=== PATIENT | male | born 1935 | race Caucasian/White ===

== ENCOUNTER 2019-01-14 04:52 | Emergency (ER) | payer MEDICARE, OTHER ==
[~2019-01-14] VITALS: Ht 182.9 cm; Wt 76.7 kg
[~2019-01-14 04:52] MED LIST: ACYC200 PO; ACYC5TO15G TOP; ASPI325B PO; ATEN25 PO; BRIM.15SO OD; CHOL10002 PO; CITRACEL; CODASP30 PO; CRUTCH USE; DIAZ5 PO; DORZOPSO OD; DOXA4 PO; ENTERIC ASPIRIN; FINA5 PO; FISH1000 PO; HYDACE5 PO; HYDCHL25 PO; LATA.005SO BOTHEYES; MULVITA PO; NAPR250 PO; NAPR500 PO; OMEP20ER PO; OMEP40CA12 PO; OXYACE5T PO; SILD25T PO; SIMV10 PO; SIMV20 PO; SPIR25 PO; TAMS.4ER PO; TRAV.004OP OD; VARDENAFIL; VITAMIN D PO; [UNRECOGNIZED DRUG - OTHER]; citracel; valium
== END 2019-01-14 05:41 | disposition home or self-care (01) ==
LOC: ER 04:52
DX: K52.9 Noninfective gastroenteritis and colitis, unspecified (principal); Z79.899 Other long term (current) drug therapy; Z79.82 Long term (current) use of aspirin
CPT/HCPCS: 99283

== ENCOUNTER 2019-03-11 13:10 | Emergency (ER) | payer MEDICARE, OTHER ==
[~2019-03-11] VITALS: Ht 180.3 cm; Wt 83.0 kg
== END 2019-03-11 15:43 | disposition left against medical advice (07) ==
LOC: ER 13:10
DX: M25.551 Pain in right hip (principal); M79.10 Myalgia, unspecified site; Z53.21 Procedure and treatment not carried out due to patient leaving prior to being seen by health care provider
CPT/HCPCS: 73502; 99283-25

== ENCOUNTER 2019-03-19 12:12 | Emergency (ER) | payer MEDICARE, OTHER ==
[~2019-03-19] VITALS: Ht 182.9 cm; Wt 83.9 kg
[2019-03-19 13:36] LABS: BASOPHILS ABSOLUTE AUTO 0.03 K/mm3 (0.00-0.23); BASOPHILS PERCENT AUTO 0 % (0-2); EOSINOPHILS ABSOLUTE AUTO 0.09 K/mm3 (0.00-0.68); EOSINOPHILS PERCENT AUTO 1 % (0-6); Hematocrit 28.6 % (37.0-53.0); Hemoglobin 9.5 g/dL (13.5-17.5); IMMATURE GRAN ABSOLUTE AUTO 0.07 K/mm3 (0.00-0.10); IMMATURE GRAN PERCENT AUTO 1 % (0-1); LYMPHOCYTES PERCENT AUTO 9 % (21-46); MONOCYTES ABSOLUTE AUTO 0.64 K/mm3 (0.16-1.47); MONOCYTES PERCENT AUTO 6 % (4-13); Mean Corpuscular HGB 32.5 pg (26.0-34.0); Mean Corpuscular HGB Conc 33.2 g/dL (31.5-36.5); Mean Corpuscular Volume 98 fL (80-100); Mean Platelet Volume 11.5 fL (9.1-12.4); NEUTROPHILS ABSOLUTE AUTO 8.39 K/mm3 (1.96-9.15); NEUTROPHILS PERCENT AUTO 83 % (41-73); Platelet Count 209 K/mm3 (150-400); RDW Coefficient Variation 14.3 % (11.7-14.2); RDW Standard Deviation 49.6 fL (35.1-46.3); Red Blood Cell Count 2.92 M/mm3 (4.30-5.90); White Blood Cell Count 10.12 K/mm3 (4.00-11.30)
[2019-03-19 13:58] LABS: Albumin, Blood 3.3 g/dL (3.4-5.0); Anion Gap 6 mmol/L (6-16); Blood Urea Nitrogen 19 mg/dL (8-24); CO2, Blood 27 mmol/L (21-32); Calcium, Blood 8.4 mg/dL (8.5-10.1); Chloride, Blood 107 mmol/L (98-108); Glucose, Blood 117 mg/dL (70-99); Potassium, Blood 3.8 mmol/L (3.5-5.5); Sodium, Blood 140 mmol/L (136-145)
[2019-03-19 14:05] LABS: Alanine Aminotransfer (ALT/SGP 17 U/L (12-78); Albumin/Globulin Ratio 1.3 (0.8-1.8); Alk Phos 35 U/L (50-136); Aspartate Aminotrans (AST/SGOT 12 U/L (12-37); Bilirubin, Total 1.8 mg/dL (0.1-1.0); Bun/Creatinine Ratio 19.9 (12.0-20.0); CPK Creatine Kinase 58 U/L (39-308); Creatine Kinase MB 1.5 ng/mL (0.0-3.6); Creatine Kinase MB Index 2.6 (0.0-4.0); Creatinine, Blood 0.96 mg/dL (0.60-1.20); Globulin, Blood 2.6 g/dL (2.2-4.0); Glomerular Filtration Rate >60 (60-); Total Protein, Blood 5.9 g/dL (6.4-8.2)
[2019-03-19] MEDS ORDERED: Percocet 5-3251 EACH PO (15:04)
[2019-03-19] MEDS ORDERED: Miralax17 GM PO (15:05)
== END 2019-03-19 15:33 | disposition home or self-care (01) ==
LOC: ER 12:12
PROVIDERS: Emergency Medicine
DX: S70.01XA Contusion of right hip, initial encounter (principal); D64.9 Anemia, unspecified; I10 Essential (primary) hypertension; Z87.891 Personal history of nicotine dependence; Z88.0 Allergy status to penicillin; Z88.8 Allergy status to other drugs, medicaments and biological substances; W19.XXXA Unspecified fall, initial encounter
CPT/HCPCS: 73502; 80053; 82550; 82553; 85025; 96374; 96375; 96376; 99284-25; J1170; J2405

== ENCOUNTER 2020-10-19 19:55 | Emergency (ER) | payer MEDICARE, OTHER ==
[~2020-10-19] VITALS: Ht 182.9 cm; Wt 81.7 kg
[~2020-10-19 19:55] MED LIST changes: +Miralax17 GM PO; +Percocet 5-3251 EACH PO
[2020-10-19] MEDS ORDERED: XARELTO20 MG PO (20:12)
[2020-10-19 20:34] LABS: BASOPHILS ABSOLUTE AUTO 0.05 K/mm3 (0.00-0.23); BASOPHILS PERCENT AUTO 0 % (0-2); EOSINOPHILS ABSOLUTE AUTO 0.21 K/mm3 (0.00-0.68); EOSINOPHILS PERCENT AUTO 2 % (0-6); Hematocrit 45.4 % (37.0-53.0); Hemoglobin 15.3 g/dL (13.5-17.5); IMMATURE GRAN ABSOLUTE AUTO 0.06 K/mm3 (0.00-0.10); IMMATURE GRAN PERCENT AUTO 1 % (0-1); LYMPHOCYTES ABSOLUTE AUTO 1.24 K/mm3 (0.84-5.20); LYMPHOCYTES PERCENT AUTO 10 % (21-46); MONOCYTES ABSOLUTE AUTO 0.89 K/mm3 (0.16-1.47); MONOCYTES PERCENT AUTO 7 % (4-13); Mean Corpuscular HGB 32.6 pg (26.0-34.0); Mean Corpuscular HGB Conc 33.7 g/dL (31.5-36.5); Mean Corpuscular Volume 97 fL (80-100); Mean Platelet Volume 10.9 fL (9.1-12.4); NEUTROPHILS ABSOLUTE AUTO 10.03 K/mm3 (1.96-9.15); NEUTROPHILS PERCENT AUTO 80 % (41-73); Platelet Count 172 K/mm3 (150-400); RDW Standard Deviation 46.1 fL (35.1-46.3); Red Blood Cell Count 4.69 M/mm3 (4.30-5.90); White Blood Cell Count 12.48 K/mm3 (4.00-11.30)
[2020-10-19 20:53] LABS: Albumin, Blood 4.1 g/dL (3.4-5.0); Albumin/Globulin Ratio 1.3 (0.8-1.8); Bilirubin, Total 0.9 mg/dL (0.1-1.0); Bun/Creatinine Ratio 16.4 (12.0-20.0); Calcium, Blood 8.9 mg/dL (8.5-10.1); Creatinine, Blood 1.16 mg/dL (0.60-1.20); Globulin, Blood 3.1 g/dL (2.2-4.0); Potassium, Blood 3.7 mmol/L (3.5-5.5); Total Protein, Blood 7.2 g/dL (6.4-8.2)
== END 2020-10-19 21:31 | disposition left against medical advice (07) ==
LOC: ER 19:55
PROVIDERS: Physician Assistant
DX: R00.1 Bradycardia, unspecified (principal); Z53.21 Procedure and treatment not carried out due to patient leaving prior to being seen by health care provider
CPT/HCPCS: 36415; 80053; 85025; 93005; 93010; 99284-25

== ENCOUNTER 2020-11-03 11:48 | Day surgery (SDC) | payer MEDICARE, OTHER ==
[~2020-11-03] VITALS: Ht 182.9 cm; Wt 57.0 kg
[~2020-11-03 11:48] MED LIST changes: +XARELTO20 MG PO
[2020-11-03] MEDS ORDERED: LOTENSIN HCT 11 EAC1 PO (12:34)
[2020-11-03] MEDS ORDERED: LATA.005SO BOTHEYES (12:36)
[2020-11-03] MEDS ORDERED: METO25ER PO (12:37)
[2020-11-03] MEDS ORDERED: NITR.4SL SL (12:38)
[2020-11-03] MEDS ORDERED: XARELTO10 M1 PO (12:39)
[2020-11-03] MEDS ORDERED: ZOCOR20 MG PO (12:39)
[2020-11-03] MEDS ORDERED: ALDACTONE100 M1 PO (12:40)
[2020-11-03] MEDS ORDERED: TAMS.4ER PO (12:40)
== END 2020-11-03 23:22 | disposition home or self-care (01) ==
LOC: MHTC 11:48
DX: R55 Syncope and collapse (principal)
CPT/HCPCS: 33285; C1764

== ENCOUNTER 2021-01-12 06:19 | Day surgery (SDC) | payer MEDICARE, OTHER ==
[~2021-01-12] VITALS: Ht 182.9 cm; Wt 91.0 kg
[~2021-01-12 06:19] MED LIST changes: +ALDACTONE100 M1 PO; +CARBLEV250 SL; +KETO.5OPSO; +LOTENSIN HCT 11 EAC1 PO; +METO25ER PO; +NITR.4SL SL; +SILD25T; +TIMDOROPSO BOTHEYES; +XARELTO10 M1 PO; +ZOCOR20 MG PO
--- NOTE | 2021-01-12 09:34 | NUR ---
TO RECOVERY ROOM VIA BED.
--- NOTE | 2021-01-12 10:30 | NUR ---
RETURNED FROM XRAY. ASSUMED CARE OF PATIENT. LEFT UPPER CHEST DRESSING DRY AND INTACT. ICE AND 2# WEIGHT APPLIED. DENIES PAIN.
--- NOTE | 2021-01-12 13:55 | NUR ---
PT AND FAMILY VERBALIZES UDNERSTANDING WRITTEN AND VERBAL INSTRUCTIONS. DENIES QUESTIONS OR CONCERNS. PT L SIDE CHEST WALL SITE REMAINS CLEAR. VSS. NADN. PT DRESSES SELF WITH MINIMAL ASSISTANCE. PT IV DC'D. CATH INTACT. PRESSURE DSG APPLIED. PT DC'D TO HOME VIA WC BY FAMILY.
== END 2021-01-12 14:00 | disposition home or self-care (01) ==
LOC: MHTC 06:19
DX: I49.5 Sick sinus syndrome (principal); I48.91 Unspecified atrial fibrillation; K21.9 Gastro-esophageal reflux disease without esophagitis; I10 Essential (primary) hypertension; E78.5 Hyperlipidemia, unspecified; G20 Parkinson's disease; Z88.0 Allergy status to penicillin; Z88.1 Allergy status to other antibiotic agents; Z88.8 Allergy status to other drugs, medicaments and biological substances; Z79.899 Other long term (current) drug therapy
CPT/HCPCS: 33207; 33286; 71046; 99152; 99153; C1786; C1898; J1644; J2250; J2310; J3010; J3370; J7030; J7040

== ENCOUNTER 2022-02-20 22:29 | Emergency (ER) | payer MEDICARE, OTHER ==
[~2022-02-20] VITALS: Ht 170.2 cm; Wt 90.7 kg
[2022-02-20 22:52] LABS: BASOPHILS ABSOLUTE AUTO 0.04 K/mm3 (0.00-0.23); BASOPHILS PERCENT AUTO 1 % (0-2); EOSINOPHILS ABSOLUTE AUTO 0.14 K/mm3 (0.00-0.68); EOSINOPHILS PERCENT AUTO 2 % (0-6); Hemoglobin 13.7 g/dL (13.5-17.5); IMMATURE GRAN ABSOLUTE AUTO 0.04 K/mm3 (0.00-0.10); IMMATURE GRAN PERCENT AUTO 1 % (0-1); LYMPHOCYTES ABSOLUTE AUTO 1.07 K/mm3 (0.84-5.20); LYMPHOCYTES PERCENT AUTO 12 % (21-46); MONOCYTES ABSOLUTE AUTO 0.66 K/mm3 (0.16-1.47); MONOCYTES PERCENT AUTO 8 % (4-13); Mean Corpuscular HGB 32.5 pg (26.0-34.0); Mean Corpuscular HGB Conc 34.3 g/dL (31.5-36.5); Mean Corpuscular Volume 95 fL (80-100); Mean Platelet Volume 11.2 fL (9.1-12.4); NEUTROPHILS ABSOLUTE AUTO 6.79 K/mm3 (1.96-9.15); NEUTROPHILS PERCENT AUTO 78 % (41-73); Platelet Count 160 K/mm3 (150-400); RDW Standard Deviation 45.4 fL (35.1-46.3); Red Blood Cell Count 4.22 M/mm3 (4.30-5.90); White Blood Cell Count 8.74 K/mm3 (4.00-11.30)
[2022-02-20 23:14] LABS: Albumin, Blood 3.6 g/dL (3.4-5.0); Albumin/Globulin Ratio 1.2 (0.8-1.8); Bilirubin, Total 1.2 mg/dL (0.1-1.0); Bun/Creatinine Ratio 17.5 (12.0-20.0); Calcium, Blood 8.9 mg/dL (8.5-10.1); Creatinine, Blood 1.03 mg/dL (0.60-1.20); Potassium, Blood 3.9 mmol/L (3.5-5.5); Total Protein, Blood 6.6 g/dL (6.4-8.2)
== END 2022-02-21 01:50 | disposition home or self-care (01) ==
LOC: ER 22:29
PROVIDERS: Emergency Medicine
DX: R07.9 Chest pain, unspecified (principal); Z87.891 Personal history of nicotine dependence
CPT/HCPCS: 71046; 80053; 83690; 84484; 85025; 93005; 93010

== ENCOUNTER 2022-11-14 03:05 | Inpatient (IN) | payer MEDICARE, OTHER ==
[~2022-11-14] VITALS: Ht 182.9 cm; Wt 81.5 kg
[2022-11-14 03:44] LABS: BASOPHILS ABSOLUTE AUTO 0.03 K/mm3 (0.00-0.23); BASOPHILS PERCENT AUTO 0 % (0-2); EOSINOPHILS ABSOLUTE AUTO 0.08 K/mm3 (0.00-0.68); EOSINOPHILS PERCENT AUTO 1 % (0-6); Hemoglobin 14.9 g/dL (13.5-17.5); IMMATURE GRAN ABSOLUTE AUTO 0.07 K/mm3 (0.00-0.10); IMMATURE GRAN PERCENT AUTO 1 % (0-1); LYMPHOCYTES ABSOLUTE AUTO 1.07 K/mm3 (0.84-5.20); LYMPHOCYTES PERCENT AUTO 8 % (21-46); MONOCYTES ABSOLUTE AUTO 0.81 K/mm3 (0.16-1.47); MONOCYTES PERCENT AUTO 6 % (4-13); Mean Corpuscular HGB 30.8 pg (26.0-34.0); Mean Corpuscular HGB Conc 32.4 g/dL (31.5-36.5); Mean Corpuscular Volume 95 fL (80-100); Mean Platelet Volume 11.4 fL (9.1-12.4); NEUTROPHILS ABSOLUTE AUTO 11.25 K/mm3 (1.96-9.15); NEUTROPHILS PERCENT AUTO 85 % (41-73); Platelet Count 193 K/mm3 (150-400); RDW Coefficient Variation 13.1 % (11.7-14.2); RDW Standard Deviation 46.1 fL (35.1-46.3); Red Blood Cell Count 4.83 M/mm3 (4.30-5.90); White Blood Cell Count 13.31 K/mm3 (4.00-11.30)
[2022-11-14 04:06] LABS: Albumin, Blood 3.8 g/dL (3.4-5.0); Albumin/Globulin Ratio 1.2 (0.8-1.8); Bilirubin, Total 1.5 mg/dL (0.1-1.0); Bun/Creatinine Ratio 18.9 (12.0-20.0); Calcium, Blood 9.3 mg/dL (8.5-10.1); Creatinine, Blood 1.22 mg/dL (0.60-1.20); Globulin, Blood 3.1 g/dL (2.2-4.0); Potassium, Blood 4.2 mmol/L (3.5-5.5); Total Protein, Blood 6.9 g/dL (6.4-8.2)
[2022-11-14 04:21] LABS: Magnesium, Blood 1.8 mg/dL (1.6-2.4); Phosphorus, Blood 3.1 mg/dL (2.5-4.9)
[2022-11-14 13:44] VITALS: BP 143/52
[2022-11-14] MEDS ORDERED: B-121000 MC3 PO (13:50)
--- NOTE | 2022-11-14 16:55 | NUR ---
TRANSFER NOTE: PT WAS TRANSFERED TO ROOM 351 AND SECOND NURSE CLYDE DID SKIN CHECK WITH THIS NURSE. NO SKIN ISSUES FOUND.
[2022-11-14 20:48] VITALS: BP 111/92
[2022-11-15 05:21] LABS: Hematocrit 38.7 % (37.0-53.0); Hemoglobin 12.8 g/dL (13.5-17.5); Mean Corpuscular HGB Conc 33.1 g/dL (31.5-36.5); Mean Corpuscular Volume 94 fL (80-100); Mean Platelet Volume 12.2 fL (9.1-12.4); Platelet Count 132 K/mm3 (150-400); RDW Coefficient Variation 13.2 % (11.7-14.2); RDW Standard Deviation 45.4 fL (35.1-46.3); Red Blood Cell Count 4.13 M/mm3 (4.30-5.90); White Blood Cell Count 8.14 K/mm3 (4.00-11.30)
[2022-11-15 05:32] VITALS: BP 122/61
[2022-11-15 05:51] LABS: Albumin/Globulin Ratio 1.1 (0.8-1.8); Bun/Creatinine Ratio 20.8 (12.0-20.0); Calcium, Blood 8.7 mg/dL (8.5-10.1); Creatinine, Blood 0.96 mg/dL (0.60-1.20); Globulin, Blood 2.8 g/dL (2.2-4.0); Potassium, Blood 4.4 mmol/L (3.5-5.5); Total Protein, Blood 5.8 g/dL (6.4-8.2)
--- NOTE | 2022-11-15 06:12 | NUR ---
SHIFT SUMMARY PT ALERT AND ORIENTED TO SELF/ PT PULLED OFF HIS TELE MULTIPLE TIMES DURING BEGINNING OF SHIFT; REPLACED TELE, PUT PATIENT IN A PAPER SHIRT; PT HAS KEPT TELE ON T/O THE REMAINDER OF SHIFT. VIRTUAL LEVEL VIAL INSPECTOR AND TESTER IS ON AND RUNNING. IV PLACED IN RIGHT WRIST. PT SLEPT OFF AND FROM 0000 TO CURRENT. PT DENIES CHEST PAIN/PRESSURE/TIGHTNESS. PT PAIN ASSESSED-PT DENIES PAIN. PT HAS IV INFUSING. BED IS LOCKED IN THE LOWEST POSITION WITH CALL LIGHT IN REACH. NO S/S OF DISTRESS NOTED AT THIS TIME.
[2022-11-15 07:51] VITALS: BP 131/57
[2022-11-15 16:00] VITALS: BP 123/55
--- NOTE | 2022-11-15 19:11 | NUR ---
SHIFT SUMMARY: PT IS ADMITTED FOR CHEST PAIN. HE HAS BEEN ALERT TO SELF WITH SOME WORD SALAD TYPE EXPRESSIONS. TALKING WITH FAMILY THIS IS BASELINE. EXAMPLE FOR WORD SALAD FROM TODAY HE STATED TO THIS LN I NEED TO WALK THE DOG AFTER A COUPLE OF QUESTIONS HE NEED TO TRY AND WALK TO THE BATHROOM. CHANGE FROM FULL CODE TO DNR. START IMDUR, ASPIRIN AND LEVAQUIN. ON TELEY WITH A REPORT OF V-PACED AT 60.
[2022-11-15 19:53] VITALS: BP 132/59
[2022-11-16 02:34] VITALS: BP 148/68
--- NOTE | 2022-11-16 05:49 | NUR ---
SHIFT SUMMARY 86 YR M ADMITTED ON 11/15/22 FOR ANGINA. DNR. NO ACUTE CHANGES THIS SHIFT. PT IS VERY CONFUSED AND ONLY ORIENTED TO SELF. HE IS EASILY REDIRECTABLE AND IS VERY PLEASANT. NO C/O CHEST PAIN THIS SHIFT AND NO OBVIOUS EPISODES OF WORD SALAD. HOWEVER, HE SAYS RANDOM THINGS AND HE IS OBVIOUSLY CONFUSED ABOUT WHERE HE IS. HE HAD A COUPLE OF NAPS THIS SHIFT BUT FOR THE MOST PART HE WAS AWAKE ALL NIGHT.
[2022-11-16 07:20] VITALS: BP 146/59
[2022-11-16 08:53] LABS: Cholesterol 156 mg/dL (50-200); HDL Cholesterol 39 mg/dL (>39); LDL/HDL RATIO 2.4; Low Density Lipoprotein Chol 93 mg/dL (0-110); Triglycerides 119 mg/dL (30-160); Very Low Density Lipoprot Chol 23 mg/dL (6-32)
[2022-11-16 14:54] VITALS: BP 130/67
--- NOTE | 2022-11-16 18:53 | NUR ---
DAY SHIFT SUMMARY: ALERT. NOT ORIENTED. DISSOCIATED AND DISORGANIZED SPEECH; BELIEVES TO BE AT [facility] IN [place] BUT CAN COMMUNICATE THAT HE WANTS TO LEAVE. SPOKE WITH DAUGHTER, CHANO, WHO STATES KRISTA' HAS DEMENTIA WELL AND CANNOT CARE FOR KRISTA ON HER OWN. PER DR BECKFORD VIA PT, HE IS NOT APPRPRIATE FOR DC AT THIS TIME AND LIKELY WON'T BE UNTIL FRIDAY IN WHICH HE WILL LIKELY DC TO SNF. DECLINED NEED TO USE BATHROOM ALL DAY TODAY AND REMAINED CLEAN AND DRY. REMOVES TELE OCCASIONALLY; RUNNING 65, V-PACED c PVCs. NO C/O PAIN OR DISCOMFORT. WILL REPORT TO ONCOMING RN.
[2022-11-16 19:44] VITALS: BP 104/79
[2022-11-17 02:26] VITALS: BP 156/71
--- NOTE | 2022-11-17 04:38 | NUR ---
SHIFT SUMMARY 86 YR M ADMITTED ON 11/15/22 FOR CHEST APIN RULE OUT DC. DNR. NORMAN WAS A ROUGH SHIFT FOR PT. HE CONTINUOUSLY PULLED AT HIS TELE WIRES DESPITE REPEATEDLY BEING TOLD BY Pathagility TECH TO LEAVE THEM ALONE. HE BECAME CONVINCED HE WANTED TO LEAVE AND TRIED GETTING OUT OF BED ON HIS OWN MULTIPLE TIMES. HE BECAME AGGRESSIVE WITH STAFF AND THREATENED SEVERAL TIMES TO MAKE US IF WE DID NOT LEAVE HIM ALONE. HE STATED THAT HE NEEDED A SHARP OBJECT TO "TAKE CARE OF US" AND HE WAS KICKING, BITING, AND SLAPPING AT STAFF. HOSPITALIST WAS CONTACTED AND AN ORDER FOR 25 MG SEROQUEL AND 2 MG HALDOL IM WERE OBTAINED WELL AN ORDER FOR A REJI VEST. PT ALSO HAD A BM IN HIS BRIEF AND WAS REFUSING FOR STAFF TO CLEAN HIM UP. THESE MEDS DID NOT WORK RIGHT AWAY SO ANOTHER ORDER FOR 10 MG ZIPRASIDON IM WAS OBTAINED. HOWEVER, THIS MED WAS NOT GIVEN PT FINALLY CALMED DOWN AND FELL ASLEEP. AT THIS TIME THE REJI WAS UNTIED AND THE ORDER WAS DC'D. AN ORDER TO DC TELE WAS ALSO OBTAINED BECAUSE PT REFUSED TO LEAVE IT ON. PT HAS BEEN SLEEPING FOR A COUPLE OF HOURS NOW.
[2022-11-17 07:33] VITALS: BP 139/81
[2022-11-17 15:07] VITALS: BP 128/56
--- NOTE | 2022-11-17 18:33 | NUR ---
SUMMARY- PT A/O X1-2, RECOGNIZES THE FAMILY. PT REMAINED IN BED, DID NOT ATTEMPT TO GET OOB. PT WAS CALM AND DIRECTABLE TODAY. SLEPT FREQ T/O DAY. INCONT URINE FLOODED BED THIS AM AND HASN'T VOIDED ALL DAY SINCE. DENIES THE NEED TO VOID. PT NEEDS CUES AND ASSISTANCE TO EAT AND DRINK. EATING SMALL AMOUNTS OF EACH MEAL WITH SET UP AND ASSIST. AND CLOSE FRIENDS IN TO VISIT THE PATIENT, PT RECOGNIZED THEM. DID NOT NEED ANY PRN ANTIPSYCHOTICS TODAY. USING VIRTUAL HIGH LEAD YARDER, NO ATTEMPTS TO GET UP. WILL REOPRT TO DEHYDRATING PRESS OPERATOR
[2022-11-17 19:56] VITALS: BP 138/59
[2022-11-18 05:08] VITALS: BP 137/72
--- NOTE | 2022-11-18 06:40 | NUR ---
SHIFT SUMMARY PT LAYING IN BED WITH EYES CLOSED DURING BEDSIDE REPORT, NO S/S DISTRESS/PAIN- PHONE CALL FROM DAUGHTER CHANO - PT REQUESTED THAT I TALK TO [place], PT INCONTINENT OF URINE T/O NIGHT- NO BEHAVIOR ISSUES PT SLEPT T/O NIGHT- BED LOW POSITION, CALL LIGHT WITHIN REACH
--- NOTE | 2022-11-18 06:45 | NUR ---
PT MONITORED BY VIRTUAL CAMERA, PT SET OFF ALARM A COUPLE TIMES IN THE NIGHT FOR ATTEMPTING TO GET TO SIDE OF BED-
[2022-11-18 07:26] VITALS: BP 149/94
--- NOTE | 2022-11-18 15:09 | NUR ---
keven Rahman ALARMED. fOUND PT WITH LEGS OOB. hE WAS TALKING ABOUT [facility] TAKING HIS . [facility]. VERY CONVOLUTED CONVERSATION. THE ONLY THREAD WAS HE WAS TALKING ABOUT [facility]. HE DID NOT REMEMBER HIS BEINGHERE AT LUNCH. MULTIPLE REDIRECTIONS AND HE WAS BECOMING MORE AGGITATED. MEDICATED WITH SEROQUEL 50MG X1. HE WAS AGREEABLE TO TAKE IT. SPENT TIME VISITING WITH HIM UNTIL HE CALMED. CONTINUE POC.
[2022-11-18 15:21] VITALS: BP 126/55
--- NOTE | 2022-11-18 16:56 | NUR ---
CLIMBING PT ON CAMERA. 4 ATTEMPTS TO CLIMB OOB TO LOOK FOR HIS LOST WATCH THAT HE TOOK OFF AT 130PM. UNABLE TO REDIRECT. BED ALARM ON. CONTINUE POC.
[2022-11-18 20:05] VITALS: BP 137/67
[2022-11-19 04:50] VITALS: BP 143/72
--- NOTE | 2022-11-19 06:31 | NUR ---
SHIFT SUMMARY BEDSIDE REPORT FROM PHILLIP RN, PT AWAKE LAYING IN BED- PT TOOK SCHEDULED MED AT HS- GAVE ADDITIONAL SEROQUEL FOR PT STARTING TO HAVE INCREASED AGITATION- PT ASKING STAFF EACH TIME IF WE KNOW WHERE HIS PEDRO IS- REORIENT PT TO PLACE AND SITUATION- PT ON VIRTUAL MONITORING AND USED MULTIPLE TIMES- BED LOW POSITION, CALL LIGHT WITHIN REACH, BED ALARM IN PLACE
[2022-11-19 07:41] VITALS: BP 150/71
[2022-11-19 15:37] VITALS: BP 141/64
--- NOTE | 2022-11-19 16:06 | NUR ---
note PT RESTING QUIETLY. HE AROUSES TO VOICE INTERACTS THEN GOES BACK TO SLEEP. CAME FOR A VISIT. SHE WOKE HIM IP. HE LOOKED AT HER AND ROLLED OVER AND WENT BACK TO SLEEP. FAMILY FRIEND RELATED THAT HE IS VERY RUDE TO HIS . HAS BEEN FOR YEARS. VSS. HE WILL WAKE UP ENOUGH TO EAT WITH ASSIST. HE WON'T FEED HIMSELF. INCONTINENT OF BLADDER. ATTENDS ON. H/L. RA. CONTINUE POC.
--- NOTE | 2022-11-19 18:27 | NUR ---
NOTE PT AWAKE, EATING DINNER. PLEASANT. HE REMEMBERS HIS VISITING. VSS. TOOK HIS MEDICATIONS WITH DINNER. ATTENDS CHANGED. BED LOW AND LOCKED WITH BED ALARM ON. SOCKS ON. CALL LIGHT WITH IN REACH. CONTINUE POC.
[2022-11-19 19:25] VITALS: BP 147/70
[2022-11-20 02:48] VITALS: BP 141/70
--- NOTE | 2022-11-20 05:55 | NUR ---
SHIFT SUMMARY BEDSIDE REPORT FROM PHILLIP RN- PT LAYING IN BED LOOKING THROUGH MAGAZINES- PT DENIES PAIN AND APPEARS TO BE COMFORTABLE, PT TURNED Q2H - BRIEF CHANGED, PT REQUSTED URNIAL - BRIEF WET - PT MONITORED BY VIRTUAL MONITOR- PT IV INFILTRATED WHEN FLUSHING WITH NS - WILL LEAVE OUT AND LEAVE MESSAGE WITH DAY SHIFT RN TO ASK FOR IV TO BE LEFT OUT- PT TAKING ORAL MEDS WITHOUT PROBLEMS
[2022-11-20 07:29] VITALS: BP 158/67
--- NOTE | 2022-11-20 08:11 | NUR ---
ASSUMED CARE OF PT. CALLED DR TO DISCUSS PT'S IV ACCESS, OBTAINED A TELEPHONE ORDER FOR NO IV ACCESS.
[2022-11-20 15:50] VITALS: BP 136/63
--- NOTE | 2022-11-20 17:19 | NUR ---
SHIFT SUMMARY PT A&O TO SELF, FAMILY, AND PLACE. PT AWAITING PLACEMENT. VSS. NO ACUTE EVENTS DURING MY SHIFT. PT PLEASANT AND COOPERATIVE WITH CARE. OBTAINED NO IV ACCESS ORDER FOR PT. PT LEFT IN A POSITION OF SAFETY WITH BED LOCKED AND IN LOWEST POSITION, BED ALARM ENABLED, ROOM CLEAR OF DEBRIS, BED RAILS UPX2, NONSKID SOCKS IN PLACE, AND CALL LIGHT WITHIN REACH.
[2022-11-20 19:21] VITALS: BP 142/62
[2022-11-21 04:25] VITALS: BP 153/79
--- NOTE | 2022-11-21 05:16 | NUR ---
END OF SHIFT SUMMARY PT CONFUSED AT BEGINNING OF SHIFT. PT CALLED OUT, WANTING STAFF TO CALL HIS TO GIVE HER AN UPDATE ON HIS CONDITION. THIS AUTHOR REASSURED PT THAT THINGS WERE GOING TO BE OKAY. PT REPOSITIONED THROUGHOUT THE SHIFT. PT INCONTINENT OF BOWEL AND BLADDER. TOTAL BED CHANGE, BRIEF WAS SATURATED IN URINE. PT CALM AND COOPERATIVE WITH CARE PROVIDED. PT DENIED CHEST PAIN/PRESSURE, NO SOB. PT TOOK MEDICATION WHOLE WITH WATER, NO ISSUES WITH SWALLOWING. PT A&O x1, ABLE TO STATE HIS NAME AND . CALL LIGHT WITHIN REACH, BED IN LOWEST POSITION. WCTM.
[2022-11-21 07:06] VITALS: BP 148/108
[2022-11-21 15:21] VITALS: BP 126/55
--- NOTE | 2022-11-21 17:26 | NUR ---
PT VSS. PT TAKEN OFF OF CAMERA MONITORING THIS AM. PT FAMILY AND VISITORS AT BEDSIDE THROUGHOUT DAY. NO ACUTE EVENTS AT THIS TIME. PT LEFT IN A POSITION OF SAFETY WITH BED/CHAIR ALARM ENABLED, NONSKID SOCKS IN PLACE, ROOM CLEAR OF DEBRIS, AND CALL LIGHT WITHIN REACH.
[2022-11-21 19:31] VITALS: BP 121/56
--- NOTE | 2022-11-22 05:51 | NUR ---
END OF SHIFT SUMMARY PT SLEPT WELL OVER NIGHT. UNEVENTFUL SHIFT. PT A&O x1-2, COMPLIANT WITH 2100 MEDICATION ADMINISTRATION. PT CALM AND COOPERATIVE WITH CARE PROVIDED. PT REQUIRES A LOT OF CUEING WITH TRANSFERS. PT UP OOB SITTING IN CHAIR NEXT TO BED AT THE CHANGE OF SHIFT. PT NO LONGER HAS TELESITTER/CAMERA MONITORING FOR SAFETY. PT SAFELY STAYED IN BED ALL NIGHT. NO HALLUCINATIONS OVERNIGHT. PRODUCTIVE COUGH PRESENT. RESP RATE EVEN AND UNLABORED. [facility] WORKING ON PLACEMENT. REFERRAL FOR SK[facility]ED REHAB WAS RESENT TO [facility] AND [facility] FOR REASSESSMENT. PT RESTING COMFORTABLY IN BED, CALL LIGHT WITHIN REACH, WCTM.
[2022-11-22 06:07] VITALS: BP 131/60
[2022-11-22 07:56] VITALS: BP 149/53
--- NOTE | 2022-11-22 14:00 | NUR ---
FRIEND AND CAME AND VISITED PATIENT, PALLIATIV CARE AND CHAPLIAN CONSULT ORDERED FOR PATIENTS COMMENTS OF WANTING IT ALL DONE AND LET HIM GO, DNR, POOR APPETITE, MEDICATED ITH TYLENOL FOR HEADACHE. CLL LIGHT WITH IN REACH, PATIENT BACK TO BED AFTER OOB IN CHAIR FOR LUNCH
--- NOTE | 2022-11-22 14:42 | NUR ---
Spiritual Care | Physician Referral Pt. i awake in bed when he welcomes my visit. Pt. is pleasant, but it curious about "who sent for me." With a calming and supportive presence I facilitated the Pt. sharing life story. Pt. displayed occassional inability to finish thoughts, and would apologize for it. The Pt. did verbalize that his spouse was not always the best at making health decisions and that is why Gaby is POA. Pt. verbalized that he would like to have more information regarding his treatment options, and that he still plans to live and enjoy life at home if possible. The Pt. did verbalize "I am a Unitarian and that won't change." I continued to listen with interest and empathy, and asked him if his religous belief came into conflict with his desire to continue treaatment. The Pts. response was not clear. The Pt. verbalized gratitude for the spiritual care visit, and welcomed the possiblity of my return.
[2022-11-22 16:58] VITALS: BP 125/66
--- NOTE | 2022-11-22 18:03 | NUR ---
NO ACUTE CHANGES, PATIENT EMOTIONAL STATE IMPROVED AT THE END OF SHIFT, AND FRIEND VISITED PATIENT, MAKES NEEDS KNOWN, RELUCTANT AT TIMES, ENCOURAGED TO PARTICIPATE IN CARE, BED ALARM ON, CALL LIGHT WITH IN REACH
[2022-11-22 19:21] VITALS: BP 115/53
--- NOTE | 2022-11-23 04:27 | NUR ---
SHIFT SUMMARY PT A&O X1-2. PT IS CONFUSED BUT EASILY REDIRECTABLE. OOB IN CHAIR FINISHING DINNER TRAY AT SHIFT REPORT. BACK TO BED WITH 1P ASSIST W/FFW AND GB. PT DENIES ANY CHEST PAIN OR PRESSURE AT THIS TIME. PT IS CONTINENT/INCONTINENT OF BOWEL/BLADDER AND SOMETIMES USES URINAL. ATTENDS IN PLACE. PT COMPLIANT WITH 2100 MEDS TAKEN WITH WATER. NO DIFFICULTIES WITH SWALLOWING. PT DENIES ANY PAIN OR DISCOMFORT. SLEEPING MUCH OF THE NIGHT WITHOUT ANY ACUTE EVENTS OVERNIGHT. BED KEPT IN THE LOWEST POSITION, CALL LIGHT WITHIN REACH, AND BED ALARM IN PLACE. WILL CONTINUE TO MONITOR UNTIL SHIFT END.
[2022-11-23 04:28] VITALS: BP 149/80
[2022-11-23 07:38] VITALS: BP 146/67
[2022-11-23 15:36] VITALS: BP 104/57
--- NOTE | 2022-11-23 19:16 | NUR ---
NO CHANGES, PATIENT VERY PLEASANT TODAY, POSITIVE ATTITUDE, VISITED TODAY, POSSIBLE PLACEMENT ON FRIDAY OR FRIDAY, MAKES NEEDS KNOWN, CALL LIGHT WITH IN REACH
[2022-11-23 19:43] VITALS: BP 124/60
--- NOTE | 2022-11-24 03:56 | NUR ---
SHIFT SUMMARY PT ALERT WITH SOME CONFUSOIN NOTICED. VERY PLEASANT AND COOPERATIVE WITH ALL CARE. PT DENIES AND CP OR PRESSURE AT THIS TIME AND HAS A PACER IN PLACE, NO TELE. PT 1P ASSIST WITH FFW & GB. PT UP IN CHAIR AT START OF SHIFT. USES CANE AT BASELINE. NO ACUTE EVENTS OVERNIGHT. BED KEPT IN LOWEST POSITION WITH BED ALARM SET AND CALL LIGHT WITHIN REACH. WILL CONTINUE TO MONITOR UNTIL SHIFT END.
[2022-11-24 04:07] VITALS: BP 147/65
[2022-11-24 07:27] VITALS: BP 154/68
[2022-11-24 15:00] VITALS: BP 116/57
--- NOTE | 2022-11-24 16:50 | NUR ---
NO ACUTE CHANGES, MENTATION SAME, ORIENTED TO SELF AND , NOT ORIENTED TO TIME DATE OR YEAR. PATIENT COMPLIANT TO ALL CARE, PLEASANT TO STAFF, USES CALL LIGHT, BED ALARM ON, POSSIBLE DISCAHRGE TO [place] ON FRIDAY OR FRIDAY, WILL RELAY TO PM RN
[2022-11-24 21:59] VITALS: BP 125/57
--- NOTE | 2022-11-25 04:45 | NUR ---
NO CHANGES OVERNIGHT. PATIENT IS PLEASANT AND COOPERATIVE WITH CARE, HE WAS TALKING JIBBERISH ABOUT WHICH PERSON IN THE ROOM WAS THE UP AND WHICH WAS THE DOWN. ONCE LAYING DOWN AND COMFORTABLE, ANA LUISA SLEPT ALL NIGHT. NO COMPLAINTS OF PAIN OR DISCOMFORT.
[2022-11-25 07:28] VITALS: BP 139/65
[2022-11-25 15:14] VITALS: BP 115/56
--- NOTE | 2022-11-25 17:02 | NUR ---
SHIFT SUMMARY: Pt remains alert to self this shift. Slept majority of this shift. Awake at 3pm, ambulating with PT then sitting in chair talking with his daughter Nancy. Ast to bathroom with walker to void. Minimal oral breakfast/lunch intake. Pain and safety maintained. Bed/chair alarm on. Will continue to monitor this shift.
[2022-11-25 19:43] VITALS: BP 130/59
--- NOTE | 2022-11-26 03:55 | NUR ---
SHIFT SUMMARY. SHIFT HAS BEEN MOSTLY UNREMARKABLE. PT HAS BEEN AOX1 THROUGHOUT SHIFT. ON SHIFT CHANGE, PT WAS SOMEWHAT ANXIOUS, RESTLESS, AND VERY DIFFICULT TO REDIRECT. REMAINED PLEASANT. WAS ABLE TO ADMINISTER PRN SEROQUEL AND SCHEDULED SEROQUEL SOME TIME AFTER, SINCE WHICH TIME PT HAS BEEN SLEEPING COMFORTABLY IN BED. CONTINUES TO SAT WELL ON ROOM AIR. NO PAIN REPORTED THUS FAR THIS SHIFT. ABLE TO MAKE NEEDS KNOWN. BED LOCKED IN LOWEST POSITION. CALLLIGHT LEFT WITHIN REACH.
[2022-11-26 05:29] VITALS: BP 141/71
[2022-11-26 08:34] VITALS: BP 151/55
[2022-11-26 15:17] VITALS: BP 112/51
--- NOTE | 2022-11-26 17:29 | NUR ---
SHIFT SUMMARY PATIENT WITH NO ACUTE EVENTS DURING SHIFT. PATIENT UP TO CHAIR FOR BREAKFAST AND LUNCH. BED IN LOW POSITION WITH BED ALARM ON. CALL LIGHT IN REACH. WILL CONTINUE TO MONITOR.
[2022-11-26 20:05] VITALS: BP 133/55
[2022-11-27 03:26] VITALS: BP 150/57
--- NOTE | 2022-11-27 03:44 | NUR ---
SHIFT SUMMARY. SHIFT HAS BEEN MOSTLY UNREMARKABLE. PT HAS BEEN AOX1 TO SELF THROUGHOUT SHIFT BUT PLEASANT AND COOPERATIVE WITH CARE. PT WAS SOMEWHAT RESTLESS AND DIFFICULT TO REDIRECT AT ONSET OF SHIFT BUT WAS ABLE TO SETTLE DOWN FOR A WHILE AND RELAX AFTER SCHEDULED SEROQUEL ADMINISTRATION. AWOKE EARLY THIS MORNING ATTEMPTING OOB STATING THAT HE WAS LATE TO HIS MOVIE AND HAD TO GO. ADMINISTERED PRN SEROQUEL AND PT HAS BEEN ABLE TO RELAX SOMEWHAT BUT REMAINS CONFUSED, SOMEWHAT DIFFICULT TO REDIRECT, AND REQUIRING FREQUENT REDIRECTION. THROUGH THIS, PT HAS BEEN VERY PLEASANT AND COOPERATIVE. CONTINENT/INCONTINENT. DOES NOT USE CALL LIGHT BUT IS ABLE TO MAKE NEEDS KNOWN. NO REPORTED PAIN. 1 PERSON ASSIST WITH FWW AND GB. SATTING WELL ON ROOM AIR. BED LOCKED IN LOWEST POSITION. CALL LIGHT LEFT WITHIN REACH.
[2022-11-27 16:20] VITALS: BP 129/68
[2022-11-27 19:20] VITALS: BP 138/52
--- NOTE | 2022-11-27 19:37 | NUR ---
SHIFT ASSESSMENT PATIENT WITH NO ACUTE EVENTS DURING SHIFT. BED ALARM ON, CALL LIGHT IN REACH. PATIENT 1PA TO BATHROOM FOR VOIDING NEEDS.
--- NOTE | 2022-11-27 19:57 | NUR ---
on shift assessment and med pass pt took meds that were handed to him and threw them across the room. when asked why he did that he said it was "an impulse". when I asked if he wanted to take his meds he said no. when i attempted to acuire the cup of juice that was in pt hand before he threw that as well he crushed the cup spilling it over himself and the bed. when i informd we would need to get him clean sheets and get him dried off he said he would "shoot you if you tried". was able to change pt with assistance from Rumen BAND STRAIGHTENER and get him situated back in bed since which time he has been relaxing.
--- NOTE | 2022-11-28 04:07 | NUR ---
SHIFT SUMMARY. AFTER INITIAL MED PASS AND SHIFT ASSESSMENT, PT HAS BEEN SLEEPING THROUGHOUT MOST OF SHIFT. PT WAS SOMEWHAT COMBATIVE WITH STAFF ON MED PASS AND SHIFT ASSESSMENT, SEE RELATED NOTE FOR DETAILS. SINCE THAT TIME PT HAS BEEN RESTING COMFORTABLY IN BED. DOES NOT USE CALL LIGHT BUT BED ALARM REMAINS IN PLACE FOR SAFETY. NO PAIN REPORTED THIS SHIFT. BED LOCKED IN LOWEST POSITION.CALL LIGHT LEFT IN REACH.
[2022-11-28 05:04] VITALS: BP 154/71
[2022-11-28 07:16] VITALS: BP 149/64
--- NOTE | 2022-11-28 15:11 | NUR ---
PT TRANSPORTED TO [facility] VIA WHEELCHAIR TRANSPORT. PT HAS BEEN AOX2 AND COOPERATIVE OF CARE. PT ABLE TO STAND WITH WALKER AND PIVOT TO WHEELCHAIR. NO DISTRESS NOTED. PACKET GIVEN TO FLORICULTURIST FAMILY PRESENT IN [place].
== END 2022-11-28 14:31 | disposition home or self-care (01) | DRG 280 ==
LOC: ER 03:05 → MEDS 03:06 → ERHOLD 03:06 → MEDS 13:21
PROVIDERS: Emergency Medicine; ADMIT Internal Medicine
DX: I25.118 Atherosclerotic heart disease of native coronary artery with other forms of angina pectoris (principal); J15.69 Pneumonia due to other Gram-negative bacteria; I21.A1 Myocardial infarction type 2; N17.9 Acute kidney failure, unspecified; I48.19 Other persistent atrial fibrillation; I51.89 Other ill-defined heart diseases; Z66 Do not resuscitate; G20.A1 Parkinson's disease without dyskinesia, without mention of fluctuations; F02.80 Dementia in other diseases classified elsewhere, unspecified severity, without behavioral disturbance, psychotic disturbance, mood disturbance, and anxiety; I27.20 Pulmonary hypertension, unspecified; I10 Essential (primary) hypertension; E78.5 Hyperlipidemia, unspecified; N40.0 Benign prostatic hyperplasia without lower urinary tract symptoms; G43.909 Migraine, unspecified, not intractable, without status migrainosus; J43.9 Emphysema, unspecified; R74.01 Elevation of levels of liver transaminase levels; K21.9 Gastro-esophageal reflux disease without esophagitis; H40.9 Unspecified glaucoma; Z88.0 Allergy status to penicillin; Z88.1 Allergy status to other antibiotic agents; Z95.2 Presence of prosthetic heart valve; Z79.899 Other long term (current) drug therapy; Z95.0 Presence of cardiac pacemaker; Z98.890 Other specified postprocedural states; Z79.01 Long term (current) use of anticoagulants; Z85.51 Personal history of malignant neoplasm of bladder; Z90.49 Acquired absence of other specified parts of digestive tract; Z98.42 Cataract extraction status, left eye; Z98.41 Cataract extraction status, right eye; Z87.891 Personal history of nicotine dependence
CPT/HCPCS: 36415; 71045; 71260; 80053; 80061; 83036; 83735; 84100; 84145; 84484; 85025; 85027; 85379; 92523; 93005; 93010; 93306; 96365; 96374; 96375; 96376; 97110; 97116; 97161; 97166; 97530; 97535; 99285-25; A9270; C9113; G0008; G0378; J1630; J1956; J7030; Q9967